=== PATIENT | female | born 1960 | race Caucasian/White ===

== ENCOUNTER → 2016-10-04 | Outpatient (CLI) | payer BC | END | disposition home or self-care (01) | LOC: RES 08:41 | DX: R06.02 Shortness of breath (principal); M34.9 Systemic sclerosis, unspecified | CPT/HCPCS: 93306; 94010; 94726; 94729 ==

== ENCOUNTER 2017-06-26 14:03 | Emergency (ER) | payer BC ==
[~2017-06-26] VITALS: Ht 160 cm; Wt 67.4 kg
[2017-06-26 14:42] LABS: HEMATOCRIT 47.2 % (36.0-46.0); HEMOGLOBIN 15.9 G/DL (11.9-15.5); MCH 30.7 PG (29.0-34.0); MCHC 33.7 G/DL (30.0-36.0); MCV 91.1 FL (83-99); PLATELET COUNT 370 K/uL (156-360); RBC DIS.WIDTH-SD 43.3 % (39-53); RED BLOOD COUNT 5.18 M/uL (3.80-5.20); WHITE BLOOD COUNT 9.5 K/uL (4.1-10.2)
[2017-06-26 14:51] LABS: ALBUMIN 4.7 g/dL (3.2-4.8); CHLORIDE 104 mEq/L (99-109); POTASSIUM 3.4 mEq/L (3.7-5.4); SODIUM 141 mEq/L (136-147)
[2017-06-26 14:53] LABS: GLUCOSE 123 mg/dL (70-99)
[2017-06-26 14:55] LABS: TOTAL BILIRUBIN 0.5 mg/dL (0.0-1.0)
[2017-06-26 14:57] LABS: ALKALINE PHOSPHATASE 101 IU/L (3-129); GFR ESTIMATE (CALCULATED) > 59 mL/min/
[2017-06-26 14:58] LABS: UREA NITROGEN (BUN) 16 mg/dL (9-23)
[2017-06-26 14:59] LABS: AST (GOT) 44 IU/L (2-34)
[2017-06-26 15:00] LABS: ALT (GPT) 68 IU/L (3-49)
[2017-06-26 16:50] LABS: APPEARANCE SL.HAZY ((CLEAR)); BILIRUBIN NEGATIVE; BLOOD NEGATIVE; COLOR AMBER ((YELLOW)); GLUCOSE (STRIP) NEGATIVE; KETONES 5; LEUKOCYTES MODERATE; NITRITE NEGATIVE; PROTEIN (STRIP) 30; SPECIFIC GRAVITY 1.026 (1.000-1.030); UROBILINOGEN 0.2 MG/DL (0.2-1.0)
[2017-06-26 17:05] LABS: BACTERIA RARE /HPF; EPITHELIAL CELLS RARE /HPF; HYALINE CASTS 0-5 /LPF; MUCUS 2+ /LPF; RED BLOOD CELLS 0-5 /HPF (0-5); UCUL ADDED? YES; WHITE BLOOD CELLS 15-20 /HPF (0-5)
[2017-06-26] MEDS ORDERED: BENTYL20 MG PO (19:09)
[2017-06-26] MEDS ORDERED: ZOFRAN ODT4 MG PO (19:09)
[2017-06-26 19:21] VITALS: BP 149/79
== END 2017-06-26 19:22 | disposition home or self-care (01) ==
LOC: EME 14:03
DX: R10.11 Right upper quadrant pain (principal); K21.9 Gastro-esophageal reflux disease without esophagitis; Z90.49 Acquired absence of other specified parts of digestive tract; F32.9 Major depressive disorder, single episode, unspecified; F41.9 Anxiety disorder, unspecified; Z88.5 Allergy status to narcotic agent
CPT/HCPCS: 76705; 80053; 81003; 85027; 87086; 99281; 99284; J0500; J1885

== ENCOUNTER → 2018-02-13 | Outpatient (CLI) | payer BC ==
[~2018-02-13] MED LIST: BENTYL20 MG PO; ZOFRAN ODT4 MG PO
== END | disposition home or self-care (01) ==
LOC: RES 12:49
DX: I05.9 Rheumatic mitral valve disease, unspecified (principal); I05.1 Rheumatic mitral insufficiency; I07.1 Rheumatic tricuspid insufficiency; I27.20 Pulmonary hypertension, unspecified; M34.9 Systemic sclerosis, unspecified; R06.09 Other forms of dyspnea
CPT/HCPCS: 93306; 94010; 94726; 94729